=== PATIENT | female | born 1975 | race Caucasian/White ===

== ENCOUNTER 2020-08-14 14:42 | Outpatient (REF) | payer OTHER, SELFPAY | END 2020-08-14 14:43 | disposition home or self-care (01) | LOC: HO.LAB 14:42 | PROVIDERS: Visit Provider Internal Medicine | DX: Z20.828 Contact with and (suspected) exposure to other viral communicable diseases (principal) | CPT/HCPCS: C9803; U0003 ==

== ENCOUNTER 2021-01-26 01:26 | Emergency (ER) | payer OTHER, SELFPAY ==
--- NOTE | ~2021-01-26 | CT_ITS ---
EXAMINATION: CT ABDOMEN AND PELVIS WITH CONTRAST CLINICAL INFORMATION: Bilateral lower quadrant pain, worse on the right COMPARISON: 09/15/2014 TECHNIQUE: Multidetector volumetric images were obtained from the superior aspect of the liver through the pubic symphysis following administration 85 mL of Omnipaque 350 intravenous contrast. Sagittal and coronal reformatted images were obtained on the technologist's workstation. Oral contrast: No This CT examination was performed using dose optimization techniques as appropriate, variously including the following: *Automated exposure control *Adjustment of mA and/or kV according to patient size (this includes techniques or standardized protocols for targeted exams where dose is matched to indication/reason for exam; i.e. extremities or head) *Use of iterative reconstruction technique DLP: 752 mGy-cm FINDINGS: LUNG BASES: The visualized lung bases are unremarkable. LIVER, GALLBLADDER, AND BILIARY TREE: The liver is normal in size, shape, and attenuation. There is minimal focal fatty infiltration along the falciform. No focal hepatic lesion or biliary ductal dilatation is present. Cholecystectomy. PANCREAS: Unremarkable. SPLEEN: Unremarkable. ADRENAL GLANDS: Unremarkable. KIDNEYS AND URETERS: The kidneys are normal in size, shape, and attenuation. No hydronephrosis, hydroureter, or calculi seen. No perinephric stranding. BLADDER: Unremarkable. GASTROINTESTINAL TRACT: The stomach is unremarkable. Normal caliber small bowel. There is no obstruction. Scattered colonic diverticulosis noted. No diverticulitis. No colonic wall thickening or inflammatory change. No free air. No free fluid. ABDOMINAL WALL: No significant hernia is appreciated. LYMPH NODES: Normal. VASCULAR: Unremarkable. PELVIC VISCERA: Uterus is not seen. 3.5 cm simple fluid attenuating left adnexal cyst. There is an adjacent 2 cm cyst. Surgical clips in the left pelvis. OSSEOUS STRUCTURES: No acute or suspicious osseous abnormality. CT/CT abdomen pelvis w con IMPRESSION: Left adnexal cysts are noted measuring up to 3.5 cm. These appear to be simple and are almost certainly benign. No follow-up recommended specifically for these cysts, in the absence of other clinical concern.
[2021-01-26 01:39] VITALS: PULSE 107; RESP 16; TEMP 37.1; O2SAT 100; BMI 43.5
[2021-01-26 02:02] LABS: Glucose, Whole Blood 348 mg/dL (60-115)
[2021-01-26 02:03] LABS: MANUAL DIFF FLAG NO
[2021-01-26 02:04] LABS: Basophils Percent Auto 0.3 % (0-2); Eosinophils Absolute Auto 0.6 X10*3/uL (0.0-0.4); Hematocrit 42.5 % (37-47); Imm Gran Abs Auto 0.09 X10*3/uL (0.00-0.03); Imm Gran Pct Auto 0.6 % (0.0-0.4); Lymphocytes Absolute Auto 4.3 X10*3/uL (1.2-4.9); Mean Corpuscular HGB Conc 32.9 g/dl (31.0-35.0); Mean Corpuscular Hemoglobin 31.2 pg (27.0-33.0); Mean Corpuscular Volume 94.7 fL (80-98); Mean Platelet Volume 12.2 fL (9.4-12.3); Monocytes Absolute Auto 1.1 X10*3/uL (0.1-1.2); Monocytes Percent Auto 7.5 % (2-11); Neutrophils Absolute Auto 8.3 X10*3/uL (2.0-8.3); Neutrophils Percent Auto 57.6 % (45-73); Platelet Count 258 X10*3/uL (160-400); Red Blood Count 4.49 X10*6/uL (4.20-5.50); Red Cell Distribution Width 13.3 % (11.0-16.0); White Blood Count 14.4 X10*3/uL (4.8-10.8)
--- NOTE | 2021-01-26 02:11 | ED.ABDPAIN ---
HPI - Abdominal Pain General Chief Complaint: Abdominal Pain Stated Complaint: High Blood Sugar/ Abdominal pain Time Seen by Provider: 01/26/21 01:35 Source: patient Mode of arrival: ambulatory Limitations: no limitations History of Present Illness HPI narrative: Patient comes emergency room complaining of right lower quadrant pain for 2 days. Patient states she has been complaining of nausea for about 1 month. Patient's blood glucose has not been controlled for several months. Patient states she keeps going to [facility] for glucose control. Patient reports 1 episode of diarrhea yesterday, none today, complaining of nausea for a month, no vomiting. Patient states that she has history of cholecystectomy , partial hysterectomy and appendectomy. MD elicited complaint: abdominal pain Related Data Home Medications Medication Instructions Recorded Confirmed albuterol sulfate 1 vial INHALATION Q4H PRN 01/26/21 01/26/21 albuterol sulfate [ProAir HFA] 2 puff INHALATION Q4H PRN 01/26/21 01/26/21 flash glucose sensor [FreeStyle 01/26/21 01/26/21 Marcelo 2 Sensor] insulin glargine [Lantus Solostar 40 unit SUBCUT BEDTIME 01/26/21 01/26/21 U-100 Insulin] insulin lispro [Humalog KwikPen See Protocol SUBCUT QIDACHS 01/26/21 01/26/21 Insulin] lithium carbonate 1 cap PO BEDTIME 01/26/21 01/26/21 pantoprazole 1 tab PO DAILY 01/26/21 01/26/21 pregabalin 1 cap PO BID 01/26/21 01/26/21 secukinumab [Cosentyx Pen (2 Pens)] 300 mg SUBCUT Q4W 01/26/21 01/26/21 tramadol 1 tab PO Q6H PRN 01/26/21 01/26/21 tramadol 1 tab PO Q6H PRN 01/26/21 01/26/21 vilazodone [Viibryd] 1 tab PO QAM 01/26/21 01/26/21 Previous Rx's Medication Instructions Recorded acetaminophen 650 mg PO Q8H PRN #14 tab 01/26/21 Allergies Allergy/AdvReac Type Severity Reaction Status Date / Time From ALEVE Allergy Unknown TACHYCARDIA Uncoded 06/11/20 18:22 /RASH From LIPITOR Allergy Unknown TACHYCARDIA Uncoded 06/11/20 18:22 Review of Systems Review of Systems Constitutional : No Weight loss, No Fever, No Chills, No Night Sweats, No Fatigue, No Malaise ENT/Mouth : No Hearing loss, No Ear Pain, No Nasal Congestion, No Sinus Pain, No Hoarseness, No sore throat, No Rhinorrhea, No Swallowing Difficulty Eyes: No Eye Pain, No Swelling, No Redness, No Foreign Body, No Discharge, No Vision Changes Cardiovascular : No Chest Pain, No SOB, No Dyspnea on Exertion, No Orthopnea, No Edema, No Palpitations Respiratory : No Cough, No Sputum, No Wheezing, No Smoke Exposure, No Dyspnea Gastrointestinal : Complaining of Nausea, No Vomiting, reports 1 episode of Diarrhea, No Constipation, complaining of righ lower quadrant pain, No Hematochezia, No Melena Genitourinary : no irregular bleeding, No Dysuria, No Urinary Frequency, No Hematuria, No Urinary Incontinence, No Urgency, No Flank Pain, No Urinary Flow Changes, No Hesitancy Musculoskeletal : No joint pain, No Myalgias, No Joint Swelling Skin : No Skin Lesions, No rash Neuro : No Weakness, No Numbness, No Paresthesias, No Loss of Consciousness, No Dizziness, No Headache Psych : No Anxiety/Panic, No Depression, No SI/HI/AH/VH, No Social Issues, Heme/Lymph: No Bruising, No Bleeding,No Lymphadenopathy Endocrine : No Polyuria, No Polydipsia, No Temperature Intolerance Physical Exam Vital Signs: Vital Signs: Last Vital Signs Temp 98.7 F 01/26/21 01:39 Pulse 107 H 01/26/21 01:39 Resp 16 01/26/21 01:39 Pulse Ox 100 01/26/21 01:39 Body Mass Index 43.5 Appearance: Alert. Oriented X3. Seems uncomfortable Eyes: Pupils equal, round and reactive to light. ENT: Pharynx normal. Neck: Normal inspection. Neck supple. No lymph nodes noted. No crepitus CVS: Normal heart rate and rhythm. Pulses normal. Normal S1 and S2 Respiratory: No respiratory distress. Breath sounds normal. No Wheezing. No rales Abdomen: Soft, tender to palpation over the bilateral lower quadrants, more noticeable on the right lower quadrant Skin: Skin warm and dry. Normal skin color. Normal skin turgor. Extremities: No lower extremity edema. No lower extremity edema. No Lacerations. No Rash Neuro: Oriented X 3. No motor deficit. No sensory deficit. Moving all extermities. No slurred speech. Course Course Course Narrative: I discussed the CT scan with the patient, patient does have an ovarian cyst that is 3 cm. Patient will follow-up with her primary care physician. I also discussed with the patient to increase her Lantus from 40 units to 44 units at bedtime. Continue using the current insulin sliding scale for list pro. Patient states that she has an appointment next week with her engineering program manager. MDM - Abdominal Pain Lab Data Result diagrams: 01/26/21 01:58 01/26/21 02:31 Labs: Lab Results 01/26/21 01/26/21 01/26/21 Range/Units 01:47 01:58 01:58 WBC 14.4 H (4.8-10.8) X10*3/uL RBC 4.49 (4.20-5.50) X10*6/uL Hgb 14.0 (12.0-16.0) g/dl Hct 42.5 (37-47) % MCV 94.7 (80-98) fL MCH 31.2 (27.0-33.0) pg MCHC 32.9 (31.0-35.0) g/dl RDW 13.3 (11.0-16.0) % Plt Count 258 (160-400) X10*3/uL MPV 12.2 (9.4-12.3) fL Immature Gran % (Auto) 0.6 H (0.0-0.4) % Neut % (Auto) 57.6 (45-73) % Lymph % (Auto) 30.0 (20-40) % [place] % (Auto) 7.5 (2-11) % Eos % (Auto) 4.0 (0-4) % Baso % (Auto) 0.3 (0-2) % Lymph # (Auto) 4.3 (1.2-4.9) X10*3/uL [place] # (Auto) 1.1 (0.1-1.2) X10*3/uL Eos # (Auto) 0.6 H (0.0-0.4) X10*3/uL Baso # (Auto) 0.0 (0.0-0.2) X10*3/uL Abs Immat Gran (auto) 0.09 H (0.00-0.03) X10*3/uL Absolute Neuts (auto) 8.3 (2.0-8.3) X10*3/uL Absolute Nucleated RBC 0.000 (0.0-0.012) X10*3/uL Nucleated RBC % (auto) 0.0 (0.0-0.2) /100WBC Hold Purple Top Hold Blue Top SEE NOTE Sodium (135-145) mmol/L Potassium (3.3-5.1) mmol/L Chloride (96-108) mmol/L Carbon Dioxide (22-29) mmol/L Anion Gap (12-20) BUN (9-16) mg/dL Creatinine (0.5-1.4) mg/dL Estim Creat Clear Calc Estimated GFR POC Glucose 348 H (60-115) mg/dL Random Glucose (60-115) mg/dL Calcium (8.4-10.2) mg/dL Total Bilirubin (0.0-1.0) mg/dL Direct Bilirubin (0.0-0.5) mg/dL AST (5-31) U/L ALT (0-31) U/L Alkaline Phosphatase (39-117) U/L Total Protein (6.5-8.0) g/dL Albumin (3.5-5.0) g/dL Lipase (8-78) U/L Beta HCG, Quant mIU/mL Urine Color Urine Appearance Urine pH (5.0-8.0) Ur Specific [place] (1.005-1.025) Urine Protein (NEG-TRACE) MG/DL Urine Glucose (UA) (NEG) MG/DL Urine Ketones (NEG) MG/DL Urine Blood (NEG) Urine Nitrite (NEG) Ur Leukocyte Esterase (NEG) Urine RBC (0) /HPF Urine WBC (0-4) /HPF Ur Squamous Epith Cells /LPF Urine Bacteria /LPF Urine Test (NEGATIVE) Acetone, Qual (Negative) 01/26/21 01/26/21 01/26/21 Range/Units 01:58 02:31 03:09 WBC (4.8-10.8) X10*3/uL RBC (4.20-5.50) X10*6/uL Hgb (12.0-16.0) g/dl Hct (37-47) % MCV (80-98) fL MCH (27.0-33.0) pg MCHC (31.0-35.0) g/dl RDW (11.0-16.0) % Plt Count (160-400) X10*3/uL MPV (9.4-12.3) fL Immature Gran % (Auto) (0.0-0.4) % Neut % (Auto) (45-73) % Lymph % (Auto) (20-40) % [place] % (Auto) (2-11) % Eos % (Auto) (0-4) % Baso % (Auto) (0-2) % Lymph # (Auto) (1.2-4.9) X10*3/uL [place] # (Auto) (0.1-1.2) X10*3/uL Eos # (Auto) (0.0-0.4) X10*3/uL Baso # (Auto) (0.0-0.2) X10*3/uL Abs Immat Gran (auto) (0.00-0.03) X10*3/uL Absolute Neuts (auto) (2.0-8.3) X10*3/uL Absolute Nucleated RBC (0.0-0.012) X10*3/uL Nucleated RBC % (auto) (0.0-0.2) /100WBC Hold Purple Top SEE NOTE Hold Blue Top Sodium 137 (135-145) mmol/L Potassium 3.7 (3.3-5.1) mmol/L Chloride 107 (96-108) mmol/L Carbon Dioxide 24 (22-29) mmol/L Anion Gap 10 L (12-20) BUN 7 L (9-16) mg/dL Creatinine 0.71 (0.5-1.4) mg/dL Estim Creat Clear Calc 118.2 Estimated GFR > 60 POC Glucose (60-115) mg/dL Random Glucose 311 H (60-115) mg/dL Calcium 8.5 (8.4-10.2) mg/dL Total Bilirubin 0.3 (0.0-1.0) mg/dL Direct Bilirubin < 0.2 (0.0-0.5) mg/dL AST 20 (5-31) U/L ALT 30 (0-31) U/L Alkaline Phosphatase 156 H (39-117) U/L Total Protein 5.9 L (6.5-8.0) g/dL Albumin 3.5 (3.5-5.0) g/dL Lipase 17 (8-78) U/L Beta HCG, Quant < 2 mIU/mL Urine Color YELLOW Urine Appearance CLEAR Urine pH 5.0 (5.0-8.0) Ur Specific [place] 1.020 (1.005-1.025) Urine Protein NEG (NEG-TRACE) MG/DL Urine Glucose (UA) >=1000 H (NEG) MG/DL Urine Ketones NEG (NEG) MG/DL Urine Blood NEG (NEG) Urine Nitrite NEG (NEG) Ur Leukocyte Esterase NEG (NEG) Urine RBC 0-2 (0) /HPF Urine WBC 0 (0-4) /HPF Ur Squamous Epith Cells 1+ /LPF Urine Bacteria NONE /LPF Urine Test (NEGATIVE) Acetone, Qual Negative (Negative) 01/26/21 Range/Units 03:09 WBC (4.8-10.8) X10*3/uL RBC (4.20-5.50) X10*6/uL Hgb (12.0-16.0) g/dl Hct (37-47) % MCV (80-98) fL MCH (27.0-33.0) pg MCHC (31.0-35.0) g/dl RDW (11.0-16.0) % Plt Count (160-400) X10*3/uL MPV (9.4-12.3) fL Immature Gran % (Auto) (0.0-0.4) % Neut % (Auto) (45-73) % Lymph % (Auto) (20-40) % [place] % (Auto) (2-11) % Eos % (Auto) (0-4) % Baso % (Auto) (0-2) % Lymph # (Auto) (1.2-4.9) X10*3/uL [place] # (Auto) (0.1-1.2) X10*3/uL Eos # (Auto) (0.0-0.4) X10*3/uL Baso # (Auto) (0.0-0.2) X10*3/uL Abs Immat Gran (auto) (0.00-0.03) X10*3/uL Absolute Neuts (auto) (2.0-8.3) X10*3/uL Absolute Nucleated RBC (0.0-0.012) X10*3/uL Nucleated RBC % (auto) (0.0-0.2) /100WBC Hold Purple Top Hold Blue Top Sodium (135-145) mmol/L Potassium (3.3-5.1) mmol/L Chloride (96-108) mmol/L Carbon Dioxide (22-29) mmol/L Anion Gap (12-20) BUN (9-16) mg/dL Creatinine (0.5-1.4) mg/dL Estim Creat Clear Calc Estimated GFR POC Glucose (60-115) mg/dL Random Glucose (60-115) mg/dL Calcium (8.4-10.2) mg/dL Total Bilirubin (0.0-1.0) mg/dL Direct Bilirubin (0.0-0.5) mg/dL AST (5-31) U/L ALT (0-31) U/L Alkaline Phosphatase (39-117) U/L Total Protein (6.5-8.0) g/dL Albumin (3.5-5.0) g/dL Lipase (8-78) U/L Beta HCG, Quant mIU/mL Urine Color Urine Appearance Urine pH (5.0-8.0) Ur Specific [place] (1.005-1.025) Urine Protein (NEG-TRACE) MG/DL Urine Glucose (UA) (NEG) MG/DL Urine Ketones (NEG) MG/DL Urine Blood (NEG) Urine Nitrite (NEG) Ur Leukocyte Esterase (NEG) Urine RBC (0) /HPF Urine WBC (0-4) /HPF Ur Squamous Epith Cells /LPF Urine Bacteria /LPF Urine Test NEGATIVE (NEGATIVE) Acetone, Qual (Negative) Imaging Data CT scan - abdomen: Radiologist's impression: LUNG BASES: The visualized lung bases are unremarkable. LIVER, GALLBLADDER, AND BILIARY TREE: The liver is normal in size, shape, and attenuation. There is minimal focal fatty infiltration along the falciform. No focal hepatic lesion or biliary ductal dilatation is present. Cholecystectomy. PANCREAS: Unremarkable. SPLEEN: Unremarkable. ADRENAL GLANDS: Unremarkable. KIDNEYS AND URETERS: The kidneys are normal in size, shape, and attenuation. No hydronephrosis, hydroureter, or calculi seen. No perinephric stranding. BLADDER: Unremarkable. GASTROINTESTINAL TRACT: The stomach is unremarkable. Normal caliber small bowel. There is no obstruction. Scattered colonic diverticulosis noted. No diverticulitis. No colonic wall thickening or inflammatory change. No free air. No free fluid. ABDOMINAL WALL: No significant hernia is appreciated. LYMPH NODES: Normal. VASCULAR: Unremarkable. PELVIC VISCERA: Uterus is not seen. 3.5 cm simple fluid attenuating left adnexal cyst. There is an adjacent 2 cm cyst. Surgical clips in the left pelvis. OSSEOUS STRUCTURES: No acute or suspicious osseous abnormality. CT/CT abdomen pelvis w con IMPRESSION: Left adnexal cysts are noted measuring up to 3.5 cm. These appear to be simple and are almost certainly benign. No follow-up recommended specifically for these cysts, in the absence of other clinical concern. Discharge Plan Discharge Clinical Impression: Chronic hyperglycemia Ovarian cyst Qualifiers: Laterality: left Qualified Code(s): N83.202 - Unspecified ovarian cyst, left side Patient Disposition: Home, Self-Care Instructions: Ovarian Cyst (ED), Diabetic Hyperglycemia (ED) Additional Instructions: Please increase your Lantus dose from 40-44 units at bedtime. Please follow-up with your engineering program manager. Please follow-up with your primary care physician tomorrow. If you have any worsening or new symptoms, please return to the emergency room or call 911 Prescriptions: New acetaminophen 650 mg tablet extended release 650 mg PO Q8H PRN (Reason: pain) Qty: 14 RF: 0 No Action albuterol sulfate 2.5 mg /3 mL (0.083 %) solution for nebulization 1 vial inhalation Q4H PRN (Reason: Wheezing) RF: 0 tramadol 50 mg tablet 1 tab PO Q6H PRN (Reason: pain) RF: 0 tramadol 50 mg tablet 1 tab PO Q6H PRN (Reason: pain) RF: 0 lithium carbonate 600 mg capsule 1 cap PO BEDTIME RF: 0 pantoprazole 40 mg tablet,delayed release (DR/EC) 1 tab PO DAILY RF: 0 albuterol sulfate [ProAir HFA] 90 mcg/actuation HFA aerosol inhaler 2 puff inhalation Q4H PRN (Reason: dyspnea) RF: 0 insulin lispro [Humalog KwikPen Insulin] 100 unit/mL insulin pen See Protocol unit subcut QIDACHS RF: 0 pregabalin 225 mg capsule 1 cap PO BID RF: 0 Lantus Solostar U-100 Insulin 100 unit/mL (3 mL) insulin pen 40 unit subcut BEDTIME RF: 0 Viibryd 10 mg tablet 1 tab PO QAM RF: 0 Cosentyx Pen (2 Pens) 150 mg/mL pen injector 300 mg subcut Q4W RF: 0 (DME) FreeStyle Marcelo 2 Sensor Kit MISCELLANEOUS RF: 0 PMFSH Past Medical History Medical History Asthma Diabetes mellitus type 1 PTSD (post-traumatic stress disorder) Social History Social History Advance Directives: No
[2021-01-26] MEDS: Morphine Sulfate 4 MG/ML CARTRIDGE IVPUSH (02:18)
[2021-01-26] MEDS: ondansetron HCL 4 MG/2 ML VIAL IVPUSH (02:18)
[2021-01-26] MEDS: Insulin Regular, Human 100 UNIT/ML 3 ML VIAL 10 UNIT IVPUSH (02:18)
[2021-01-26] MEDS: 0.9 % Sodium Chloride 1,000 ML 999 ML IVCONT ×2 (02:18)
--- NOTE | 2021-01-26 02:30 | PC.NURSE ---
PT AMBULATORY TO ROOM #14 WITH C/O LOWER RIGHT ABD PAIN, NAUSEA, AND DIZZINESS X 1 MONTH. PT ARRIVES ALERT, RESPIRATIONS EASY, N/L. SKIN W/D. FAMILY AT BEDSIDE WITH PT. PT RATING LOWER ABD PAIN 10/10. MD IN ROOM FOR EVAL.
[2021-01-26 02:58] LABS: Acetone, serum QL Negative (Negative)
[2021-01-26 03:09] LABS: Alanine Aminotransferase 30 U/L (0-31); Albumin Level 3.5 g/dL (3.5-5.0); Alkaline Phosphatase 156 U/L (39-117); Anion Gap 10 (12-20); Aspartate Amino Transferase 20 U/L (5-31); Bilirubin Direct < 0.2 mg/dL (0.0-0.5); Bilirubin Total 0.3 mg/dL (0.0-1.0); Blood Urea Nitrogen 7 mg/dL (9-16); Calcium 8.5 mg/dL (8.4-10.2); Carbon Dioxide 24 mmol/L (22-29); Chloride 107 mmol/L (96-108); Creatinine Clr Calc Pharmacy 118.2; Estimated Glomerular Filt Rate > 60; Glucose Random 311 mg/dL (60-115); Lipase 17 U/L (8-78); Potassium 3.7 mmol/L (3.3-5.1); Sodium 137 mmol/L (135-145); Total Protein 5.9 g/dL (6.5-8.0)
[2021-01-26 03:16] LABS: Glucose Urine UA >=1000 MG/DL (NEG); Leukocyte Esterase Urine NEG (NEG); Nitrite Urine NEG (NEG); Urine Blood NEG (NEG); Urine Ketones NEG (NEG); Urine Protein NEG (NEG-TRACE)
[2021-01-26 03:23] LABS: Appearance Urine CLEAR; Color Urine YELLOW
[2021-01-26 03:24] LABS: UPreg QC Valid YES; Urine Pregnancy NEGATIVE (NEGATIVE)
[2021-01-26 03:26] LABS: RBC Urine 0-2 /HPF (0); Squamous Epithelial Cell Urine 1+ /LPF; WBC Urine 0 /HPF (0-4)
[2021-01-26 03:43] LABS: HCG Quantitative < 2 mIU/mL
[2021-01-26] MEDS: iohexoL 350 MG/ML 100 ML INFUS..BTL 85 ML IV (03:48)
== END 2021-01-26 04:49 | disposition home or self-care (01) ==
PROVIDERS: Emergency Provider Emergency Medicine
DX: N83.292 Other ovarian cyst, left side (principal); E11.65 Type 2 diabetes mellitus with hyperglycemia; R10.31 Right lower quadrant pain; Z90.49 Acquired absence of other specified parts of digestive tract; Z90.710 Acquired absence of both cervix and uterus; Z79.4 Long term (current) use of insulin
CPT/HCPCS: 36415; 74177; 80053; 80076; 81001; 81025; 82009; 82248; 82947; 83690; 84702; 85025; 96361; 96374; 96375; 99283; 99284; J2270; J2405; Q9967

== ENCOUNTER 2021-06-21 19:01 | Emergency (ER) | payer OTHER, SELFPAY ==
[2021-06-21 20:51] VITALS: BP 93/52; PULSE 88; RESP 20; TEMP 37.1; O2SAT 98
[2021-06-21 21:04] VITALS: BP 158/111; PULSE 88; RESP 20; TEMP 37.1; O2SAT 98; BMI 40.2
--- NOTE | 2021-06-21 21:23 | ED.GENADULT ---
HPI - General Adult General Chief complaint: General Medical Stated complaint: Earache/Back pain Time Seen by Provider: 06/21/21 21:23 Source: patient Mode of arrival: ambulatory Limitations: no limitations History of Present Illness HPI narrative: 46-year-old female who reports she has history of chronic low back pain she is not sure if he marii over or picked up shoulder in is having pain in the right lower back region. She also reports bilateral ear pain. She otherwise denies any injury or fall. Onset (ago): minute(s) Radiation: non-radiation Severity: mild Relieving factors: none Exacerbating factors: none Associated symptoms: denies other symptoms Treatments prior to arrival: none Related Data Home Medications Medication Instructions Recorded Confirmed albuterol sulfate 1 vial INHALATION Q4H PRN 01/26/21 01/26/21 albuterol sulfate 90 mcg/actuation 2 puff INHALATION Q4H PRN 01/26/21 01/26/21 aerosol inhaler (ProAir HFA) flash glucose sensor (FreeStyle 01/26/21 01/26/21 Marcelo 2 Sensor) insulin glargine 100 unit/mL (3 40 unit SUBCUT BEDTIME 01/26/21 01/26/21 mL) subcutaneous pen (Lantus Solostar U-100 Insulin) insulin lispro 100 unit/mL See Protocol SUBCUT QIDACHS 01/26/21 01/26/21 subcutaneous pen (Humalog KwikPen (U-100) Insulin) lithium carbonate 600 mg capsule 1 cap PO BEDTIME 01/26/21 01/26/21 pantoprazole 40 mg tablet,delayed 1 tab PO DAILY 01/26/21 01/26/21 release pregabalin 225 mg capsule 1 cap PO BID 01/26/21 01/26/21 secukinumab 150 mg/mL subcutaneous 300 mg SUBCUT Q4W 01/26/21 01/26/21 pen injector (Cosentyx Pen 300 mg/2 Pens () tramadol 50 mg tablet 1 tab PO Q6H PRN 01/26/21 01/26/21 tramadol 50 mg tablet 1 tab PO Q6H PRN 01/26/21 01/26/21 vilazodone 10 mg tablet (Viibryd) 1 tab PO QAM 01/26/21 01/26/21 Previous Rx's Medication Instructions Recorded acetaminophen 650 mg 650 mg PO Q8H PRN #14 tab 01/26/21 tablet,extended release cyclobenzaprine 10 mg tablet 10 mg PO TID PRN #20 tab 06/21/21 Allergies Allergy/AdvReac Type Severity Reaction Status Date / Time From ALEVE Allergy Unknown TACHYCARDIA Uncoded 06/21/21 21:13 /RASH From LIPITOR Allergy Unknown TACHYCARDIA Uncoded 06/21/21 21:13 Review of Systems Review of Systems: Constitutional: No Weight loss, No Fever, No Chills, No Night Sweats, No Fatigue, No Malaise ENT/Mouth: No Hearing loss, + Ear Pain, No Nasal Congestion, No Sinus Pain, No Hoarseness, No sore throat, No Rhinorrhea, No Swallowing Difficulty Eyes: No Eye Pain, No Swelling, No Redness, No Foreign Body, No Discharge, No Vision Changes Cardiovascular: No Chest Pain, No SOB, No Dyspnea on Exertion, No Orthopnea, No Edema, No Palpitations Respiratory: No Cough, No Sputum, No Wheezing, No Smoke Exposure, No Dyspnea Gastrointestinal: No Nausea, No Vomiting, No Diarrhea, No Constipation, No abdominal Pain, No Hematochezia, No Melena Genitourinary: no irregular bleeding, No Dysuria, No Urinary Frequency, No Hematuria, No Urinary Incontinence, No Urgency, No Flank Pain, No Urinary Flow Changes, No Hesitancy Musculoskeletal: No joint pain, No Myalgias, No Joint Swelling Skin: No Skin Lesions, No rash Neuro: No Weakness, No Numbness, No Paresthesias, No Loss of Consciousness, No Dizziness, No Headache Psych: No Social Issues Heme/Lymph: No Bruising, No Bleeding,No Lymphadenopathy Endocrine: No Polyuria, No Polydipsia, No Temperature Intolerance Yes all other systems are reviewed and are negative [facility] Past Medical History Medical History Asthma Diabetes mellitus type 1 PTSD (post-traumatic stress disorder) Social History Social History Advance Directives: No Advance Directives Information Provided: No Patient : No Physical Exam Vital Signs: Vital Signs: Last Vital Signs Temp 98.8 F 06/21/21 21:04 Pulse 88 06/21/21 21:04 Resp 20 06/21/21 21:04 BP 158/111 H 06/21/21 21:04 Pulse Ox 98 06/21/21 21:04 Body Mass Index 40.2 Const: General: cooperative and healthy appearing; No acute distress or intoxicated appearing Nutritional Appearance: average body habitus Orientation/consciousness: patient oriented x3 HENMT: Other: Bilateral ear cerumen impaction Head: Yes normal to inspection Ears: hearing grossly normal bilaterally Eyes: General: appearance normal, both eyes and all related structures Visual Barragan: normal visual barragan by confrontation Neck: Neck: Yes normal visual inspection, No positive Brudzinski's sign, No positive Kernig's sign and No tender Thyroid: Thyroid normal Chest: Chest palpation & inspection: normal inspection of the chest Resp: Effort & Inspection: normal respiratory effort Cardio: Jugular venous distension: no JVD GI: Inspection: Yes normal to inspection Percussion: Yes normal to percussion Auscultation: normal bowel sounds : General: Yes no CVA tenderness Back/Spine/Pelvis: Other: Mild tender palpation over the lumbar paraspinous muscle region over the buttock radiating down to the right leg mid posterior thigh. Strength within normal limits. Positive leg lift at 65 degrees. Squeeze test negative, Homans negative. Back: no CVA tenderness Skin: General skin exam: no rashes or lesions noted Neuro: General: patient oriented x3 Extrem: General: Yes normal to inspection Course Reevaluation(s) Reevaluation #1: Assessment plan consistent with strain type injury to the right lower lumbar region. Feels much better after Toradol. Also on exam having bilateral cerumen impaction would like to trial Debrox before having this strain. She is ambulatory status with gait. No low back pain red flags. No GI symptoms. Stable for discharge. Discharge Plan Discharge Clinical Impression: Bilateral impacted cerumen, Acute lumbar myofascial strain Patient Disposition: Home, Self-Care Instructions: Low Back Strain (ED) Additional Instructions: Taking medication prescribed for your low back pain Prescriptions: New cyclobenzaprine 10 mg tablet 10 mg PO TID PRN (Reason: muscle spasm) Qty: 20 RF: 0 No Action albuterol sulfate 2.5 mg /3 mL (0.083 %) solution for nebulization 1 vial inhalation Q4H PRN (Reason: Wheezing) RF: 0 tramadol 50 mg tablet 1 tab PO Q6H PRN (Reason: pain) RF: 0 tramadol 50 mg tablet 1 tab PO Q6H PRN (Reason: pain) RF: 0 lithium carbonate 600 mg capsule 1 cap PO BEDTIME RF: 0 pantoprazole 40 mg tablet,delayed release (DR/EC) 1 tab PO DAILY RF: 0 albuterol sulfate [ProAir HFA] 90 mcg/actuation HFA aerosol inhaler 2 puff inhalation Q4H PRN (Reason: dyspnea) RF: 0 insulin lispro [Humalog KwikPen Insulin] 100 unit/mL insulin pen See Protocol unit subcut QIDACHS RF: 0 pregabalin 225 mg capsule 1 cap PO BID RF: 0 Lantus Solostar U-100 Insulin 100 unit/mL (3 mL) insulin pen 40 unit subcut BEDTIME RF: 0 Viibryd 10 mg tablet 1 tab PO QAM RF: 0 Cosentyx Pen (2 Pens) 150 mg/mL pen injector 300 mg subcut Q4W RF: 0 (DME) FreeStyle Marcelo 2 Sensor Kit MISCELLANEOUS RF: 0 acetaminophen 650 mg tablet extended release 650 mg PO Q8H PRN (Reason: pain) Qty: 14 RF: 0 Referrals: ED Physician,Generic [Physician] - 2 days Interventions: ED Discharge Assessment Last Done: 06/21/21 22:56 Discharge Date/Time: 06/21/21 22:59
[2021-06-21] MEDS: Ketorolac Tromethamine 60 MG/2 ML VIAL IM (21:44)
[2021-06-21] MEDS: Cyclobenzaprine HCl 10 MG TABLET PO (21:44)
== END 2021-06-21 22:59 | disposition home or self-care (01) ==
PROVIDERS: Emergency Provider Emergency Medicine
DX: H92.03 Otalgia, bilateral (principal); H61.23 Impacted cerumen, bilateral; M54.5 Low back pain; Z79.899 Other long term (current) drug therapy
CPT/HCPCS: 96372; 99284; J1885

== ENCOUNTER 2022-03-16 01:49 | Emergency (ER) | payer OTHER, SELFPAY ==
[2022-03-16 02:14] VITALS: BP 148/83; PULSE 74; RESP 15; TEMP 36.1; O2SAT 95; BMI 40.2
--- NOTE | 2022-03-16 05:25 | PC.NURSE ---
MD in main ED several patients behind. Pt unable to wait any longer.
== END 2022-03-16 05:26 | disposition left against medical advice (07) ==
PROVIDERS: Emergency Provider Emergency Medicine
DX: M25.511 Pain in right shoulder (principal); R51.9 Headache, unspecified; R42 Dizziness and giddiness
CPT/HCPCS: 99281